=== PATIENT | male | born 1945 | race Caucasian/White ===

== ENCOUNTER 2018-04-15 19:33 | Emergency (ER) | payer MEDICARE, OTHER | END 2018-04-15 20:00 | disposition left against medical advice (07) | LOC: EMS 19:34 | DX: R19.7 Diarrhea, unspecified (principal); R11.10 Vomiting, unspecified; R50.9 Fever, unspecified; Z53.21 Procedure and treatment not carried out due to patient leaving prior to being seen by health care provider ==

== ENCOUNTER 2019-11-24 10:30 | Emergency (ER) | payer MEDICARE, OTHER ==
[~2019-11-24] VITALS: Ht 167.6 cm; Wt 77.3 kg
[2019-11-24] MEDS ORDERED: ASPI-1111 PO (10:37)
[2019-11-24 12:17] LABS: BILIRUBIN,URINE NEGATIVE (NEGATIVE); GLUCOSE, URINE (UA) NEGATIVE (NEGATIVE); KETONES,URINE NEGATIVE (NEGATIVE); LEUKOCYTE ESTERASE ,URINE NEGATIVE (NEGATIVE); NITRATE,URINE NEGATIVE (NEGATIVE); OCCULT BLOOD,URINE NEGATIVE (NEGATIVE); PH,URINE 5.5 (5.0-8.0); PROTEIN,URINE NEGATIVE (NEGATIVE); UROBILINOGEN,URINE 0.2 mg/dL (<=1.0)
[2019-11-24 12:27] LABS: APPEARANCE,URINE CLEAR (CLEAR)
[2019-11-24 13:06] LABS: BASOPHILS % (AUTO) 0.7 % (0.0-2.0); CALCIUM, TOTAL 8.7 mg/dL (8.8-10.5); CREATININE 1.21 mg/dL (0.60-1.30); EOSINOPHILS % (AUTO) 1.4 % (1.0-6.0); HEMATOCRIT 39.8 % (41-53); HEMOGLOBIN 13.3 g/dL (13.5-17.5); LYMPHOCYTES # (AUTO) 1.2 K/uL (1.0-4.8); LYMPHOCYTES % (AUTO) 20.1 % (22.0-44.0); MEAN CORPUSCULAR HEMOGLOBIN 29.9 pg (26.0-34.0); MEAN CORPUSCULAR HGB CONC 33.4 G/dL (31.0-37.0); MEAN CORPUSCULAR VOLUME 90 fL (80-100); MONOCYTES # (AUTO) 0.4 K/uL (0.1-1.0); MONOCYTES % (AUTO) 6.9 % (2.0-9.0); NEUTROPHILS # (AUTO) 4.2 K/uL (1.8-7.7); NEUTROPHILS % (AUTO) 70.9 % (40.0-70.0); PLATELET COUNT (AUTO) 195 K/uL (150-450); POTASSIUM 3.8 mmol/L (3.5-5.1); RED BLOOD CELL COUNT(AUTO) 4.44 MIL/uL (4.50-5.90); RED CELL DISTRIBUTION WIDTH 13.4 % (11.5-14.5)
[2019-11-24 13:11] LABS: ALBUMIN 3.3 g/dL (3.4-5.0); BILIRUBIN,TOTAL 0.4 mg/dL (0.1-1.0); TOTAL PROTEIN, SERUM 6.5 g/dL (6.4-8.2)
[2019-11-24] MEDS ORDERED: IBUPROFEN 600 MG TABLET PO ONE (13:15)
[2019-11-24 13:22] LABS: PROTHROMBIN TIME 10.1 SEC (9.4-11.6)
[2019-11-24 13:44] VITALS: BP 122/68
== END 2019-11-24 13:55 | disposition home or self-care (01) ==
LOC: EMS 10:40
DX: S00.83XA Contusion of other part of head, initial encounter (principal); S50.02XA Contusion of left elbow, initial encounter; F41.9 Anxiety disorder, unspecified; I10 Essential (primary) hypertension; E78.00 Pure hypercholesterolemia, unspecified; I25.10 Atherosclerotic heart disease of native coronary artery without angina pectoris; W18.39XA Other fall on same level, initial encounter; Y93.89 Activity, other specified; Y92.89 Other specified places as the place of occurrence of the external cause; Y99.8 Other external cause status
CPT/HCPCS: 70450; 70486; 93005; 36415-L1; 36415-TC; 71045-TC; 81003-TC

== ENCOUNTER 2020-12-21 15:28 | Inpatient (IN) | payer MEDICARE, OTHER ==
[~2020-12-21] VITALS: Ht 165.1 cm; Wt 99.8 kg
[~2020-12-21 15:28] MED LIST: ASPI-1444 PO
[2020-12-21 16:11] LABS: BASOPHILS % (AUTO) 0.6 % (0.0-2.0); EOSINOPHILS % (AUTO) 1.3 % (1.0-6.0); HEMATOCRIT 43.9 % (41-53); HEMOGLOBIN 14.5 g/dL (13.5-17.5); LYMPHOCYTES # (AUTO) 1.8 K/uL (1.0-4.8); LYMPHOCYTES % (AUTO) 27.1 % (22.0-44.0); MEAN CORPUSCULAR HEMOGLOBIN 29.6 pg (26.0-34.0); MEAN CORPUSCULAR VOLUME 90 fL (80-100); MONOCYTES # (AUTO) 0.5 K/uL (0.1-1.0); MONOCYTES % (AUTO) 7.8 % (2.0-9.0); NEUTROPHILS # (AUTO) 4.1 K/uL (1.8-7.7); NEUTROPHILS % (AUTO) 63.2 % (40.0-70.0); PLATELET COUNT (AUTO) 209 K/uL (150-450); RED BLOOD CELL COUNT(AUTO) 4.89 MIL/uL (4.50-5.90); RED CELL DISTRIBUTION WIDTH 13.7 % (11.5-14.5)
[2020-12-21 16:20] LABS: CALCIUM, TOTAL 8.8 mg/dL (8.8-10.5); CREATININE 2.14 mg/dL (0.60-1.30); MAGNESIUM 2.3 mg/dL (1.80-2.40)
[2020-12-21 16:20] LABS: COVID AG,FIA SOURCE NASOPHARYNGEAL
[2020-12-21] MEDS ORDERED: SERT-158 PO (17:07)
[2020-12-21] MEDS ORDERED: ATEN-187 PO (17:07)
[2020-12-21] MEDS ORDERED: [UNRECOGNIZED DRUG - CODE] ITH (17:07)
[2020-12-21] MEDS ORDERED: DOXA8 PO (17:07)
[2020-12-21] MEDS ORDERED: ATOR20TA65 PO (17:07)
[2020-12-21] MEDS ORDERED: ONDANSETRON HCL 4 MG/2 ML VIAL IVP PRN ×2 (18:15→18:30)
[2020-12-21] MEDS ORDERED: ACETAMINOPHEN 325 MG TABLET PO PRN ×2 (18:15→18:30)
[2020-12-21 21:16] VITALS: BP 116/61
[2020-12-22] VITALS (7 sets, daily range): BP systolic 102–136; BP diastolic 55–73
[2020-12-22] MEDS: HEPARIN SODIUM,PORCINE 5,000 UNITS/ML VIAL SQ SCH ×4 (00:28→22:34)
[2020-12-22] MEDS ORDERED: INFLUENZA VIRUS VACCINE QVS 2021-22 (6MO+)/PF 60 MCG/0.5 ML SYRINGE IM. ONE (02:30)
[2020-12-22 06:28] LABS: BASOPHILS % (AUTO) 0.5 % (0.0-2.0); EOSINOPHILS % (AUTO) 1.8 % (1.0-6.0); HEMATOCRIT 42.5 % (41-53); LYMPHOCYTES # (AUTO) 1.9 K/uL (1.0-4.8); LYMPHOCYTES % (AUTO) 29.5 % (22.0-44.0); MEAN CORPUSCULAR VOLUME 91 fL (80-100); MONOCYTES # (AUTO) 0.5 K/uL (0.1-1.0); MONOCYTES % (AUTO) 7.7 % (2.0-9.0); NEUTROPHILS # (AUTO) 3.9 K/uL (1.8-7.7); NEUTROPHILS % (AUTO) 60.5 % (40.0-70.0); PLATELET COUNT (AUTO) 186 K/uL (150-450); RED BLOOD CELL COUNT(AUTO) 4.67 MIL/uL (4.50-5.90); RED CELL DISTRIBUTION WIDTH 13.7 % (11.5-14.5)
[2020-12-22 06:43] LABS: CALCIUM, TOTAL 8.1 mg/dL (8.8-10.5); CREATININE 1.55 mg/dL (0.60-1.30); MAGNESIUM 2.2 mg/dL (1.80-2.40); POTASSIUM 4.2 mmol/L (3.5-5.1)
[2020-12-22] MEDS: ASPIRIN 81 MG DR TABLET PO SCH (10:31)
[2020-12-22] MEDS: ATORVASTATIN CALCIUM 40 MG TABLET PO SCH (10:32)
[2020-12-22] MEDS: SERTRALINE HCL 50 MG TABLET PO SCH (10:32)
[2020-12-22] MEDS: AMIODARONE HCL 200 MG TABLET PO SCH ×2 (15:53→20:04)
[2020-12-22 17:40] LABS: CREATININE,URINE RANDOM 113.4 mg/dL (30.0-125.0)
[2020-12-22 17:47] LABS: APPEARANCE,URINE CLEAR (CLEAR); BILIRUBIN,URINE NEGATIVE (NEGATIVE); GLUCOSE, URINE (UA) NEGATIVE (NEGATIVE); KETONES,URINE NEGATIVE (NEGATIVE); LEUKOCYTE ESTERASE ,URINE NEGATIVE (NEGATIVE); NITRATE,URINE NEGATIVE (NEGATIVE); OCCULT BLOOD,URINE NEGATIVE (NEGATIVE); PROTEIN,URINE NEGATIVE (NEGATIVE); UROBILINOGEN,URINE 0.2 mg/dL (<=1.0)
[2020-12-22 17:59] LABS: CREATININE,URINE RANDOM 113.4 mg/dL (30.0-125.0); PROTEIN,URINE RANDOM < 6 mg/dL (0-11.9)
[2020-12-22] MEDS: APIXABAN 2.5 MG TABLET PO SCH (20:04)
[2020-12-23 03:55] VITALS: BP 90/58
[2020-12-23 07:07] LABS: CALCIUM, TOTAL 8.5 mg/dL (8.8-10.5); CREATININE 1.54 mg/dL (0.60-1.30); POTASSIUM 4.1 mmol/L (3.5-5.1); THYROID STIMULATING HORMONE 3.7 uIU/mL (0.36-3.74)
[2020-12-23 07:10] VITALS: BP 99/65
[2020-12-23] MEDS: AMIODARONE HCL 200 MG TABLET PO SCH (08:44)
[2020-12-23] MEDS: HEPARIN SODIUM,PORCINE 5,000 UNITS/ML VIAL SQ SCH (08:44)
[2020-12-23] MEDS: APIXABAN 2.5 MG TABLET PO SCH (08:44)
[2020-12-23] MEDS: ASPIRIN 81 MG DR TABLET PO SCH (08:44)
[2020-12-23] MEDS: ATORVASTATIN CALCIUM 40 MG TABLET PO SCH (08:44)
[2020-12-23] MEDS: SERTRALINE HCL 50 MG TABLET PO SCH (08:44)
[2020-12-23 11:18] VITALS: BP 112/68
[2020-12-23] MEDS ORDERED: APIX2.5T PO (14:41)
[2020-12-23] MEDS ORDERED: ATOR40TA71 PO (14:41)
[2020-12-23] MEDS ORDERED: AMIO200 PO (14:41)
[2020-12-23] MEDS ORDERED: ASPI-1444 PO (14:41)
[2020-12-23 15:06] VITALS: BP 128/85
== END 2020-12-23 14:30 | disposition home or self-care (01) | DRG 308 ==
LOC: EMS 15:28 → 5S 18:35
PROVIDERS: ADMIT Internal Medicine; ATTEND Internal Medicine
DX: I48.91 Unspecified atrial fibrillation (principal); N17.0 Acute kidney failure with tubular necrosis; E87.0 Hyperosmolality and hypernatremia; E66.9 Obesity, unspecified; Z68.37 Body mass index [BMI] 37.0-37.9, adult; I25.10 Atherosclerotic heart disease of native coronary artery without angina pectoris; E78.5 Hyperlipidemia, unspecified; Z20.822 Contact with and (suspected) exposure to COVID-19; E78.00 Pure hypercholesterolemia, unspecified; I12.9 Hypertensive chronic kidney disease with stage 1 through stage 4 chronic kidney disease, or unspecified chronic kidney disease; N18.9 Chronic kidney disease, unspecified; N40.1 Benign prostatic hyperplasia with lower urinary tract symptoms; R33.8 Other retention of urine; Z87.442 Personal history of urinary calculi
CPT/HCPCS: 71045; 76770; 80048; 81003; 82043; 82570; 83735; 84156; 84300; 84443; 84484; 85025; 93005; 93306; 99285; G0378; J1644; 36415-L1; 36415-TC

== ENCOUNTER 2021-09-28 18:40 | Emergency (ER) | payer MEDICARE, OTHER ==
[~2021-09-28] VITALS: Ht 172.7 cm; Wt 113.6 kg
[~2021-09-28 18:40] MED LIST changes: +AMIO200 PO; +APIX2.5T PO; +ATOR40TA71 PO; +DOXA8 PO; +SERT-158 PO; +[UNRECOGNIZED DRUG - CODE] ITH
[2021-09-28] MEDS ORDERED: DOXA2TAB86 PO (18:53)
[2021-09-28] MEDS ORDERED: ATEN-187 PO (18:53)
[2021-09-28] MEDS ORDERED: CHOL20002 PO (18:53)
[2021-09-28] MEDS ORDERED: APIX5TAB PO (18:53)
[2021-09-28 20:03] LABS: BASOPHILS % (AUTO) 0.6 % (0.0-2.0); EOSINOPHILS % (AUTO) 1.5 % (1.0-6.0); HEMATOCRIT 32.2 % (41-53); HEMOGLOBIN 10.8 g/dL (13.5-17.5); LYMPHOCYTES # (AUTO) 0.9 K/uL (1.0-4.8); LYMPHOCYTES % (AUTO) 16.1 % (22.0-44.0); MEAN CORPUSCULAR HEMOGLOBIN 30.3 pg (26.0-34.0); MEAN CORPUSCULAR HGB CONC 33.5 G/dL (31.0-37.0); MEAN CORPUSCULAR VOLUME 90 fL (80-100); MONOCYTES # (AUTO) 0.4 K/uL (0.1-1.0); MONOCYTES % (AUTO) 8.1 % (2.0-9.0); NEUTROPHILS % (AUTO) 73.7 % (40.0-70.0); PLATELET COUNT (AUTO) 156 K/uL (150-450); RED BLOOD CELL COUNT(AUTO) 3.56 MIL/uL (4.50-5.90); RED CELL DISTRIBUTION WIDTH 14.4 % (11.5-14.5)
[2021-09-28 20:06] LABS: CREATININE 1.46 mg/dL (0.60-1.30); POTASSIUM 4.1 mmol/L (3.5-5.1)
[2021-09-28 20:37] VITALS: BP 144/66
== END 2021-09-28 21:02 | disposition home or self-care (01) ==
LOC: EMS 18:42
DX: I10 Essential (primary) hypertension (principal); R42 Dizziness and giddiness; F41.9 Anxiety disorder, unspecified; I25.10 Atherosclerotic heart disease of native coronary artery without angina pectoris; E78.00 Pure hypercholesterolemia, unspecified
CPT/HCPCS: 71045; 80048; 84484; 85025; 93005; 99285; 36415-L1; 36415-TC

== ENCOUNTER 2023-11-28 21:35 | Emergency (ER) | payer MEDICARE, OTHER ==
[~2023-11-28] VITALS: Ht 165.1 cm; Wt 86.4 kg
[~2023-11-28 21:35] MED LIST changes: -AMIO200 PO; +AMIO200T68 PO; -APIX2.5T PO; +APIX5TAB PO; -ASPI-1444 PO; +CHOL20002 PO; -DOXA8 PO; +METO25 PO; -[UNRECOGNIZED DRUG - CODE] ITH
[2023-11-28 21:42] VITALS: BP 145/75; PULSE 81; RESP 16; TEMP 97.9; O2SAT 96
== END 2023-11-29 00:23 | disposition home or self-care (01) ==
LOC: EMS 21:35
DX: S62.307A Unspecified fracture of fifth metacarpal bone, left hand, initial encounter for closed fracture (principal); F41.9 Anxiety disorder, unspecified; E78.00 Pure hypercholesterolemia, unspecified; I10 Essential (primary) hypertension; W22.8XXA Striking against or struck by other objects, initial encounter; Y93.89 Activity, other specified; Y92.89 Other specified places as the place of occurrence of the external cause; Y99.8 Other external cause status
CPT/HCPCS: 99284

== ENCOUNTER 2024-05-25 13:56 | Emergency (ER) | payer MEDICARE, OTHER ==
[~2024-05-25] VITALS: Ht 165.1 cm; Wt 90.9 kg
[2024-05-25 14:20] VITALS: BP 146/67; PULSE 70; RESP 18; TEMP 98.2; O2SAT 98
[2024-05-25] MEDS: HYDROCODONE/ACETAMINOPHEN 5-325 MG TABLET PO ONE (18:05)
[2024-05-25] MEDS: METHOCARBAMOL 500 MG TABLET PO ONE (18:06)
== END 2024-05-25 22:00 | disposition home or self-care (01) ==
LOC: EMS 14:00
DX: S20.229A Contusion of unspecified back wall of thorax, initial encounter (principal); M47.896 Other spondylosis, lumbar region; M47.814 Spondylosis without myelopathy or radiculopathy, thoracic region; I10 Essential (primary) hypertension; E78.00 Pure hypercholesterolemia, unspecified; F41.9 Anxiety disorder, unspecified; Z79.01 Long term (current) use of anticoagulants; Z79.899 Other long term (current) drug therapy; W06.XXXA Fall from bed, initial encounter; Y93.89 Activity, other specified; Y92.89 Other specified places as the place of occurrence of the external cause; Y99.8 Other external cause status
CPT/HCPCS: 72040; 72070; 72100; 99283